=== PATIENT | male | born 1955 | race Caucasian/White ===

== ENCOUNTER 2018-11-10 20:59 | Emergency (ER) | payer OTHER ==
[2018-11-10] MEDS ORDERED: Sodium Chloride 0.9% 2,000 ML ONE (21:11)
[2018-11-10 21:31] LABS: #Basophils 0.1 thou/uL (0.0-0.2); #Eosinphils 0.1 thou/uL (0.0-0.7); #Monocytes 1.2 thou/uL (0.11-0.59); #Neutrophils 11.1 thou/uL (1.40-6.50); %Basophils 1.1 % (0.0-1.0); %Eosinophils 0.4 % (0.0-10.0); %Lymphocytes 7.5 % (21.0-51.0); %Monocytes 8.8 % (0.0-10.0); %Neutrophils 82.2 % (42.0-75.0); Hemoglobin 14.8 g/dL (14.0-18.0); Mean Corpuscular HGB CONC 32.5 g/dL (32.0-36.0); Mean Corpuscular Hemoglobin 30.2 pg (27.0-31.0); Mean Platelet Volume 6.4 fL (7.4-10.4); Platelet Count 255 thou/uL (130-400); RBC Distribution Width 13.5 % (11.5-14.5); Red Blood Cell (RBC) Count 4.89 mill/uL (4.70-6.10); White Blood Cell (WBC) Count 13.4 thou/uL (4.8-10.8)
[2018-11-10 21:41] LABS: INR-International Normal Ratio 3.2; PTT 41.1 SEC (22.9-36.1); Prothrombin Time 32.7 SEC (12.0-14.7)
[2018-11-10 21:51] LABS: ALT (SGPT) 38 U/L (8-55); AST (SGOT) 40 U/L (5-34); Albumin 4.3 g/dL (3.4-4.8); Alkaline Phosphatase 77 U/L (40-150); Anion Gap 18 mmol/L (10-20); BUN (Urea Nitrogen) 34 mg/dL (8.4-25.7); Bilirubin, Total 1.7 mg/dL (0.2-1.2); CK (CPK) 644 U/L (30-200); Calc. Creatinine Clearance 0 mL/min (70-130); Calcium 10.5 mg/dL (7.8-10.44); Carbon Dioxide 22 mmol/L (23-31); Chloride 105 mmol/L (98-107); Estimated GFR-MDRD 22; Globulin 3.2 g/dL (2.4-3.5); Glucose 89 mg/dL (80-115); Potassium 4.4 mmol/L (3.5-5.1); Protein, Total 7.5 g/dL (5.8-8.1); Sodium 141 mmol/L (136-145)
--- NOTE | 2018-11-10 22:06 | RAD ---
RADIOGRAPH CHEST 1 VIEW: DATE: 11/10/2018 HISTORY: 63-year-old male with hypotension. FINDINGS: There are no airspace densities, pulmonary edema, pneumothorax, or cardiomegaly. The lateral costophr enic angles are sharp. Azygos lobe at right medial apex. IMPRESSION: No acute cardiopulmonary findings.
[2018-11-10] MEDS ORDERED: Piperacillin/Tazobactam 4.5 GM VIAL ONE (22:10)
[2018-11-10] MEDS ORDERED: Sodium Chloride 0.9% 100 ML ONE (22:10)
[2018-11-10] MEDS ORDERED: Sodium Chloride 0.9% 250 ML 250 ML ONE (22:23)
== END 2018-11-10 23:06 | disposition short-term general hospital (02) ==
LOC: MADERS 20:59
DX: E86.0 Dehydration (principal); N17.9 Acute kidney failure, unspecified; D72.829 Elevated white blood cell count, unspecified; I10 Essential (primary) hypertension; M10.9 Gout, unspecified; Z85.038 Personal history of other malignant neoplasm of large intestine; Z79.01 Long term (current) use of anticoagulants; Z79.899 Other long term (current) drug therapy
CPT/HCPCS: 36415; 71045; 80053; 82550; 83605; 84484; 85025; 85610; 85730; 87040; 93005; 94760; 96361; 96365; 96367; J2543; J3370; J3490; J7050